=== PATIENT | male | born 1970 | race Caucasian/White ===

== ENCOUNTER 2024-05-07 09:49 | Inpatient (IN) | payer OTHER ==
[2024-05-07 10:14] VITALS: BMI 23.3
[2024-05-07] MEDS ORDERED: hydrOXYzine PAMOATE 25 MG CAPSULE (FP) PO PRN (10:40)
[2024-05-07] MEDS ORDERED: guaiFENesin 600 MG TABLET.ER (FP) PO PRN (10:40)
[2024-05-07] MEDS ORDERED: MAGNESIUM HYDROX 2400MG/30ML ORAL SUSPENSION 30 ML CUP PO PRN (10:40)
[2024-05-07] MEDS ORDERED: BISMUTH SUBSALICYLATE 262 MG/15 ML BTL PO PRN (10:40)
[2024-05-07] MEDS ORDERED: NICOTINE POLACRILEX 4 MG GUM BUC PRN (10:40)
[2024-05-07] MEDS ORDERED: BENZOCAINE/MENTHOL (CHLORASEPTIC ) LOZENGE MM PRN (10:40)
[2024-05-07] MEDS ORDERED: POLYETHYLENE GLYCOL (HEALTHYLAX) 3350 17 GM PACKET PO PRN (10:40)
[2024-05-07] MEDS ORDERED: IBUPROFEN 600 MG TABLET (FP) PO PRN (10:40)
[2024-05-07] MEDS ORDERED: NALOXONE (NARCAN) HCL 4 MG/0.1 ML SPRAY NS PRN (10:40)
[2024-05-07] MEDS ORDERED: DICYCLOMINE HCL 10 MG CAPSULE PO PRN (10:40)
[2024-05-07] MEDS ORDERED: BENZONATATE 200 MG CAPSULE PO PRN (10:40)
[2024-05-07] MEDS ORDERED: LOPERAMIDE HCL 2 MG CAPSULE PO PRN (10:40)
[2024-05-07] MEDS ORDERED: ONDANSETRON *ODT* 4 MG TABLET SL PRN (10:40)
[2024-05-07] MEDS ORDERED: MAG HYDROX/AL HYDROX/SIMETH 30 ML UNIT-DOSE CUP PO PRN (10:40)
[2024-05-07] MEDS ORDERED: ACETAMINOPHEN 325 MG TABLET (FP) PO PRN (10:40)
[2024-05-07] MEDS ORDERED: chlordiazePOXIDE HCL 25 MG CAPSULE PO PRN (10:42)
[2024-05-07] MEDS ORDERED: cloNIDine HCL 0.1 MG TABLET PO PRN (12:36)
[2024-05-07] MEDS: NALTREXONE HCL 50 MG TABLET PO ONE (17:24)
[2024-05-07] MEDS: chlordiazePOXIDE HCL 25 MG CAPSULE PO SCH (17:26)
[2024-05-07] MEDS: MELATONIN 5 MG TABLETS PO SCH (22:20)
[2024-05-07] MEDS: THIAMINE 100 MG TABLET PO SCH (22:21)
[2024-05-08] MEDS: IBUPROFEN 400 MG TABLET (FP) PO PRN (06:07)
[2024-05-08 09:49] LABS: POTASSIUM 3.6 mmol/L (3.5-5.1)
[2024-05-08 09:56] LABS: CALCIUM 8.7 mg/dL (8.5-10.1)
[2024-05-08 09:57] LABS: ALBUMIN 3.4 g/dl (3.4-5.0); BLOOD UREA NITROGEN 10.9 mg/dL (7-18)
[2024-05-08 10:00] LABS: CREATININE 0.5 mg/dL (0.55-1.3); HEMATOCRIT 41.3 % (35.4-49); HEMOGLOBIN 13.6 GM/dL (11.7-16.9); MCH 33.1 pg (25.7-33.7); MEAN CELL VOLUME 100.5 fl (80-96); MEAN PLT VOLUME 9.2 fl (7.5-11.1); PLATELET COUNT 92 10^3/uL (134-434); RBC 4.11 M/mm3 (4.00-5.60); RDW 14.7 % (11.9-15.9); WHITE BLOOD COUNT 10.9 K/mm3 (4.0-10.0)
[2024-05-08 10:02] LABS: BILIRUBIN,TOTAL 1.4 mg/dL (0.2-1); TOT PROT 6.4 g/dl (6.4-8.2)
[2024-05-08] MEDS: NALTREXONE HCL 50 MG TABLET PO SCH (10:23)
[2024-05-08] MEDS: PRENATAL VITAMINS W/ FOLIC ACID TABLET (FP) PO SCH (10:24)
[2024-05-08] MEDS: NICOTINE 14 MG/24 HOURS TOPICAL PATCH TD SCH (10:24)
[2024-05-08] MEDS: METHOCARBAMOL 500 MG TABLET PO PRN (22:09)
[2024-05-09] MEDS: chlordiazePOXIDE HCL 25 MG CAPSULE PO SCH (05:27)
[2024-05-09] MEDS: ALBUTEROL SO4 HFA INHALER IH PRN (19:30)
[2024-05-10] MEDS ORDERED: chlordiazePOXIDE HCL 10 MG CAPSULE PO PRN
[2024-05-10] MEDS: chlordiazePOXIDE HCL 10 MG CAPSULE PO SCH (05:57)
[2024-05-10] MEDS: MAGNESIUM SULFATE 16 OZ CRYSTALS TP ONE (09:55)
[2024-05-11] MEDS: chlordiazePOXIDE HCL 10 MG CAPSULE PO SCH (05:40)
[2024-05-11] MEDS ORDERED: MAGNESIUM SULFATE 16 OZ CRYSTALS TP ONE (12:40)
[2024-05-11] MEDS: MAGNESIUM SULFATE 16 OZ CRYSTALS TP ONE (13:59)
[2024-05-12] MEDS: chlordiazePOXIDE HCL 10 MG CAPSULE PO ONE (05:40)
[2024-05-12 13:05] VITALS: BP 133/79; PULSE 96; RESP 18; TEMP 97.8
== END 2024-05-12 14:22 | disposition other institution (70) | DRG 775 ==
LOC: YASAS 09:49 → Y3N 11:05
PROVIDERS: ADMIT Allergy & Immunology; ATTEND Allergy & Immunology
PROC: HZ2ZZZZ Detoxification Services for Substance Abuse Treatment (ICD-10-PCS; principal; 2024-05-07)
DX: F10.230 Alcohol dependence with withdrawal, uncomplicated (principal); F12.20 Cannabis dependence, uncomplicated; F17.210 Nicotine dependence, cigarettes, uncomplicated; F32.A Depression, unspecified; F41.9 Anxiety disorder, unspecified; Z56.0 Unemployment, unspecified; Z59.00 Homelessness unspecified
CPT/HCPCS: 36415; 80053; 80305; 80307; 85027; 86780; 87811; 93005; 93010

== ENCOUNTER 2024-05-12 14:30 | Inpatient (IN) | payer OTHER ==
[2024-05-12] MEDS ORDERED: MAGNESIUM HYDROX 2400MG/30ML ORAL SUSPENSION 30 ML CUP PO PRN (15:51)
[2024-05-12] MEDS ORDERED: LOPERAMIDE HCL 2 MG CAPSULE PO PRN (15:51)
[2024-05-12] MEDS ORDERED: guaiFENesin 600 MG TABLET.ER (FP) PO PRN (15:51)
[2024-05-12] MEDS ORDERED: NICOTINE POLACRILEX 4 MG LOZENGE BC PRN (15:51)
[2024-05-12] MEDS ORDERED: hydrOXYzine PAMOATE 25 MG CAPSULE (FP) PO PRN (15:51)
[2024-05-12] MEDS ORDERED: BENZONATATE 200 MG CAPSULE PO PRN (15:51)
[2024-05-12] MEDS ORDERED: NICOTINE POLACRILEX 4 MG GUM BUC PRN (15:51)
[2024-05-12] MEDS ORDERED: NALOXONE HCL 0.4 MG/ML VIAL IVPUSH PRN (15:51)
[2024-05-12] MEDS ORDERED: MAG HYDROX/AL HYDROX/SIMETH 30 ML UNIT-DOSE CUP PO PRN (15:51)
[2024-05-12] MEDS ORDERED: POLYETHYLENE GLYCOL (HEALTHYLAX) 3350 17 GM PACKET PO PRN (15:51)
[2024-05-12] MEDS ORDERED: ACETAMINOPHEN 325 MG TABLET (FP) PO PRN (15:51)
[2024-05-12] MEDS ORDERED: NALOXONE (NARCAN) HCL 4 MG/0.1 ML SPRAY NS PRN (15:51)
[2024-05-12] MEDS: ALBUTEROL SO4 HFA INHALER IH PRN (21:14)
[2024-05-12] MEDS: THIAMINE 100 MG TABLET PO SCH (21:15)
[2024-05-12] MEDS: MELATONIN 5 MG TABLETS PO SCH (21:15)
[2024-05-12] MEDS: METHOCARBAMOL 500 MG TABLET PO PRN (21:15)
[2024-05-13] MEDS: NALTREXONE HCL 50 MG TABLET PO SCH (09:44)
[2024-05-13] MEDS: PRENATAL VITAMINS W/ FOLIC ACID TABLET (FP) PO SCH (09:44)
[2024-05-13] MEDS: NICOTINE 14 MG/24 HOURS TOPICAL PATCH TD PRN (12:01)
[2024-05-14] MEDS: MELATONIN 5 MG TABLETS PO SCH (21:07)
[2024-05-15] MEDS: IBUPROFEN 600 MG TABLET (FP) PO PRN (09:47)
[2024-05-16] MEDS: NICOTINE 14 MG/24 HOURS TOPICAL PATCH TD SCH (09:39)
[2024-05-19] MEDS: BENZOCAINE/MENTHOL (CHLORASEPTIC ) LOZENGE MM PRN (06:23)
[2024-05-19] MEDS: guaiFENesin 200 MG/10 ML 10 ML UNIT-DOSE CUPS PO PRN (14:58)
[2024-05-20] MEDS ORDERED: NALTREXONE HCL 50 MG TABLET PO SCH (10:00)
[2024-05-20] MEDS: METHOCARBAMOL 500 MG TABLET PO SCH (17:10)
[2024-05-22] MEDS: LIDOCAINE 5% TOPICAL PATCH TP SCH (13:24)
[2024-05-22] MEDS: LIDOCAINE PATCH REMOVAL MC SCH (21:08)
[2024-05-24] MEDS: IBUPROFEN 400 MG TABLET (FP) PO PRN (03:47)
[2024-05-24 17:20] VITALS: BMI 23.3
[2024-05-25 06:54] VITALS: RESP 16
[2024-05-26 06:39] VITALS: BP 122/72; PULSE 62; TEMP 97.1
== END 2024-05-26 09:20 | disposition home or self-care (01) | DRG 772 ==
LOC: YASAS 14:30 → Y5N 14:39
PROVIDERS: ADMIT Psychiatry & Neurology Pain Medicine; ATTEND Psychiatry & Neurology Pain Medicine
PROC: HZ42ZZZ Group Counseling for Substance Abuse Treatment, Cognitive-Behavioral (ICD-10-PCS; principal; 2024-05-12)
DX: F10.20 Alcohol dependence, uncomplicated (principal); F12.20 Cannabis dependence, uncomplicated; F32.A Depression, unspecified; F41.9 Anxiety disorder, unspecified; M54.50 Low back pain, unspecified; R26.89 Other abnormalities of gait and mobility; Z96.643 Presence of artificial hip joint, bilateral; Z99.89 Dependence on other enabling machines and devices; Z59.00 Homelessness unspecified; Z88.1 Allergy status to other antibiotic agents
CPT/HCPCS: 87070